=== PATIENT | male | born 1950 | race Caucasian/White ===

== ENCOUNTER 2020-03-17 02:03 | Emergency (ER) | payer SELFPAY ==
[2020-03-17] MEDS ORDERED: Acetaminophen 325 MG Tab PO ONE (02:42)
--- NOTE | 2020-03-17 02:53 | EDM.PDOC ---
<Jammie Ferguson - Last Filed: 03/17/20 06:28> ED HPI GENERAL MEDICAL PROBLEM - General Chief Complaint: Respiratory Problem Stated Complaint: CHILLS DOESNT FEEL WELL Time Seen by Provider: 03/17/20 02:15 Source of Information: Reports: Patient History Limitations: Reports: No Limitations - History of Present Illness INITIAL COMMENTS - FREE TEXT/NARRATIVE: ED with c/o chills body aches, cough and SOB. No nausea or vomiting No loss of taste or smell. No known COVID exposure. Cough nonproductive. Smoker usual 1PPD down to 1/2PPD past 2 days. HX COPD, intermittent use of Albuterol, Bladder cancer [facility] this [facility] Advil last at 5pm, usually one dose per days. 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 ED EXAM, GENERAL - Physical Exam Exam: See Below Exam Limited By: No Limitations General Appearance: Alert, Anxious, Mild Distress Eye Exam: Bilateral Eye: EOMI, PERRL Ears: Normal External Exam Nose: Normal Inspection Throat/Mouth: Normal Inspection Head: Atraumatic, Normocephalic Neck: Normal Inspection Respiratory/Chest: No Respiratory Distress, Lungs Clear, Other (dry bronchial cough) Cardiovascular: Normal Peripheral Pulses, Regular Rate, Rhythm GI/Abdominal: Normal Bowel Sounds, Soft Back Exam: Normal Inspection, Full Range of Motion Extremities: Normal Inspection, Normal Range of Motion Neurological: Alert, Oriented, Normal Cognition Psychiatric: Normal Affect, Normal Mood Skin Exam: Warm, Dry, Intact, Normal Color Departure - Departure Disposition: Home, Self-Care 01 Condition: Good Clinical Impression: Myalgia, COVID-19, History of COPD, Hx of bladder cancer - Discharge Information *PRESCRIPTION DRUG MONITORING PROGRAM REVIEWED*: No *COPY OF PRESCRIPTION DRUG MONITORING REPORT IN PATIENT DANETTE: No Instructions: COVID-19 Frequently Asked Questions, Prevent the Spread of COVID- 19 if You Are Sick - [facility] Forms: ED Department Discharge Additional Instructions: increase fluids decrease smoking over counter cold medications to manage congestion /cough tylenol 650mg every 4 hours as needed for discomfort and fever humidifier quarantine urgent follow up if severe difficulty breathing Sepsis Event Note (ED) - Evaluation Sepsis Screening Result: Possible Sepsis Risk <Lei Smith - Last Filed: 03/17/20 07:14> Course - Vital Signs Last Recorded V/S: Last Vital Signs Temp 35.9 C L 03/17/20 07:09 Pulse 76 03/17/20 07:09 Resp 18 03/17/20 07:09 BP 130/80 03/17/20 07:09 Pulse Ox 98 03/17/20 07:09 - Orders/Labs/Meds Orders: Active Orders 24 hr Category Date Time Status CULTURE BLOOD [BC] Stat Lab 03/17/20 02:33 Received LORazepam [Ativan] Med 03/17/20 04:55 Active 1 mg IVPUSH ONETIME PRN Isolation [COMM] Routine Oth 03/17/20 02:54 Active Medication Orders Lorazepam (Ativan) 1 mg IVPUSH ONETIME PRN PRN Reason: Agitation Last Admin: 03/17/20 05:19 Dose: 1 mg Documented by: JOHANN Labs: Laboratory Tests 03/17/20 03/17/20 03/17/20 Range/Units 02:33 02:33 02:33 WBC 7.7 (5.0-10.0) 10^3/uL RBC 5.42 (4.6-6.2) 10^6/uL Hgb 16.4 (14.0-18.0) g/dL Hct 47.2 (40.0-54.0) % MCV 87.1 (80-100) fL MCH 30.3 (27.0-34.0) pg MCHC 34.7 (33.0-35.0) g/dL Plt Count 212 (150-450) 10^3/uL Neut % (Auto) 59.1 (42.2-75.2) % Lymph % (Auto) 26.4 (20.5-50.1) % [place] % (Auto) 13.5 H (2-8) % Eos % (Auto) 0.9 L (1.0-3.0) % Baso % (Auto) 0.1 (0.0-1.0) % PT 9.9 (9.0-12.0) SEC INR 1.0 (0.9-1.2) D-Dimer, Quantitative (0-400) ng/mL Sodium 134 L (136-145) mmol/L Potassium 4.6 (3.5-5.1) mmol/L Chloride 99 (98-107) mmol/L Carbon Dioxide 26 (21-32) mmol/L Anion Gap 13.6 H (7-13) mEq/L BUN 16 (7-18) mg/dL Creatinine 1.31 H (0.70-1.30) mg/dL Est Cr Clr Drug Dosing 56.50 mL/min Estimated GFR (MDRD) 55 BUN/Creatinine Ratio 12.2 (No establ ref range) Glucose 97 (74-99) mg/dL Lactic Acid (0.4-2.0) mmol/L Calcium 8.3 L (8.5-10.1) mg/dL Total Bilirubin 0.5 (0.2-1.0) mg/dL AST 25 (15-37) U/L ALT 27 (16-63) U/L Alkaline Phosphatase 84 (46-116) U/L Total Protein 7.4 (6.4-8.2) g/dL Albumin 3.3 L (3.4-5.0) g/dL Globulin 4.1 Albumin/Globulin Ratio 0.80 Amylase 55 (25-115) U/L Lipase 117 (73-393) U/L Urine Color (YELLOW) Urine Appearance (CLEAR) Urine pH (5.0-9.0) Ur Specific [place] (1.005-1.030) Urine Protein (NEGATIVE) Urine Glucose (UA) (NEGATIVE) Urine Ketones (NEGATIVE) Urine Occult Blood (NEGATIVE) Urine Nitrite (NEGATIVE) Urine Bilirubin (NEGATIVE) Urine Urobilinogen (0.2-1.0) mg/dL Ur Leukocyte Esterase (NEGATIVE) Urine Opiates Screen (NEGATIVE) Ur Oxycodone Screen (NEGATIVE) Urine Methadone Screen (NEGATIVE) Ur Barbiturates Screen (NEGATIVE) U Tricyclic Antidepress (NEGATIVE) Ur Phencyclidine Scrn (NEGATIVE) Ur Amphetamine Screen (NEGATIVE) U Methamphetamines Scrn (NEGATIVE) Urine MDMA Screen (NEGATIVE) U Benzodiazepines Scrn (NEGATIVE) Urine Cocaine Screen (NEGATIVE) U Marijuana (THC) Screen (NEGATIVE) Ethyl Alcohol (0) mg/dL SARS CoV-2 RNA Rapid MERRICK (NEGATIVE) 03/17/20 03/17/20 03/17/20 Range/Units 02:33 02:33 02:33 WBC (5.0-10.0) 10^3/uL RBC (4.6-6.2) 10^6/uL Hgb (14.0-18.0) g/dL Hct (40.0-54.0) % MCV (80-100) fL MCH (27.0-34.0) pg MCHC (33.0-35.0) g/dL Plt Count (150-450) 10^3/uL Neut % (Auto) (42.2-75.2) % Lymph % (Auto) (20.5-50.1) % [place] % (Auto) (2-8) % Eos % (Auto) (1.0-3.0) % Baso % (Auto) (0.0-1.0) % PT (9.0-12.0) SEC INR (0.9-1.2) D-Dimer, Quantitative 430 H (0-400) ng/mL Sodium (136-145) mmol/L Potassium (3.5-5.1) mmol/L Chloride (98-107) mmol/L Carbon Dioxide (21-32) mmol/L Anion Gap (7-13) mEq/L BUN (7-18) mg/dL Creatinine (0.70-1.30) mg/dL Est Cr Clr Drug Dosing mL/min Estimated GFR (MDRD) BUN/Creatinine Ratio (No establ ref range) Glucose (74-99) mg/dL Lactic Acid 1.8 (0.4-2.0) mmol/L Calcium (8.5-10.1) mg/dL Total Bilirubin (0.2-1.0) mg/dL AST (15-37) U/L ALT (16-63) U/L Alkaline Phosphatase (46-116) U/L Total Protein (6.4-8.2) g/dL Albumin (3.4-5.0) g/dL Globulin Albumin/Globulin Ratio Amylase (25-115) U/L Lipase (73-393) U/L Urine Color (YELLOW) Urine Appearance (CLEAR) Urine pH (5.0-9.0) Ur Specific [place] (1.005-1.030) Urine Protein (NEGATIVE) Urine Glucose (UA) (NEGATIVE) Urine Ketones (NEGATIVE) Urine Occult Blood (NEGATIVE) Urine Nitrite (NEGATIVE) Urine Bilirubin (NEGATIVE) Urine Urobilinogen (0.2-1.0) mg/dL Ur Leukocyte Esterase (NEGATIVE) Urine Opiates Screen (NEGATIVE) Ur Oxycodone Screen (NEGATIVE) Urine Methadone Screen (NEGATIVE) Ur Barbiturates Screen (NEGATIVE) U Tricyclic Antidepress (NEGATIVE) Ur Phencyclidine Scrn (NEGATIVE) Ur Amphetamine Screen (NEGATIVE) U Methamphetamines Scrn (NEGATIVE) Urine MDMA Screen (NEGATIVE) U Benzodiazepines Scrn (NEGATIVE) Urine Cocaine Screen (NEGATIVE) U Marijuana (THC) Screen (NEGATIVE) Ethyl Alcohol < 3 (0) mg/dL SARS CoV-2 RNA Rapid MERRICK (NEGATIVE) 03/17/20 03/17/20 03/17/20 Range/Units 02:34 03:30 03:30 WBC (5.0-10.0) 10^3/uL RBC (4.6-6.2) 10^6/uL Hgb (14.0-18.0) g/dL Hct (40.0-54.0) % MCV (80-100) fL MCH (27.0-34.0) pg MCHC (33.0-35.0) g/dL Plt Count (150-450) 10^3/uL Neut % (Auto) (42.2-75.2) % Lymph % (Auto) (20.5-50.1) % [place] % (Auto) (2-8) % Eos % (Auto) (1.0-3.0) % Baso % (Auto) (0.0-1.0) % PT (9.0-12.0) SEC INR (0.9-1.2) D-Dimer, Quantitative (0-400) ng/mL Sodium (136-145) mmol/L Potassium (3.5-5.1) mmol/L Chloride (98-107) mmol/L Carbon Dioxide (21-32) mmol/L Anion Gap (7-13) mEq/L BUN (7-18) mg/dL Creatinine (0.70-1.30) mg/dL Est Cr Clr Drug Dosing mL/min Estimated GFR (MDRD) BUN/Creatinine Ratio (No establ ref range) Glucose (74-99) mg/dL Lactic Acid (0.4-2.0) mmol/L Calcium (8.5-10.1) mg/dL Total Bilirubin (0.2-1.0) mg/dL AST (15-37) U/L ALT (16-63) U/L Alkaline Phosphatase (46-116) U/L Total Protein (6.4-8.2) g/dL Albumin (3.4-5.0) g/dL Globulin Albumin/Globulin Ratio Amylase (25-115) U/L Lipase (73-393) U/L Urine Color Yellow (YELLOW) Urine Appearance Clear (CLEAR) Urine pH 7.5 (5.0-9.0) Ur Specific [place] 1.020 (1.005-1.030) Urine Protein Negative (NEGATIVE) Urine Glucose (UA) Negative (NEGATIVE) Urine Ketones Negative (NEGATIVE) Urine Occult Blood Negative (NEGATIVE) Urine Nitrite Negative (NEGATIVE) Urine Bilirubin Negative (NEGATIVE) Urine Urobilinogen 0.2 (0.2-1.0) mg/dL Ur Leukocyte Esterase Negative (NEGATIVE) Urine Opiates Screen Negative (NEGATIVE) Ur Oxycodone Screen Negative (NEGATIVE) Urine Methadone Screen Negative (NEGATIVE) Ur Barbiturates Screen Negative (NEGATIVE) U Tricyclic Antidepress Negative (NEGATIVE) Ur Phencyclidine Scrn Negative (NEGATIVE) Ur Amphetamine Screen Negative (NEGATIVE) U Methamphetamines Scrn Positive H (NEGATIVE) Urine MDMA Screen Negative (NEGATIVE) U Benzodiazepines Scrn Negative (NEGATIVE) Urine Cocaine Screen Negative (NEGATIVE) U Marijuana (THC) Screen Positive H (NEGATIVE) Ethyl Alcohol (0) mg/dL SARS CoV-2 RNA Rapid MERRICK Positive H (NEGATIVE) Meds: Medications Generic Name Dose Route Start Last Admin Trade Name Freq PRN Reason Stop Dose Admin Lorazepam 1 mg 03/17/20 04:55 03/17/20 05:19 Ativan IVPUSH 1 mg ONETIME PRN Administration Agitation Discontinued Medications Generic Name Dose Route Start Last Admin Trade Name Freq PRN Reason Stop Dose Admin Acetaminophen 650 mg 03/17/20 02:42 03/17/20 02:52 Tylenol PO 03/17/20 02:43 650 mg NOW ONE Administration Fentanyl 50 mcg 03/17/20 04:44 03/17/20 04:47 Sublimaze IVPUSH 03/17/20 04:45 50 mcg ONETIME ONE Administration Fentanyl Confirm 03/17/20 04:44 03/17/20 04:50 Sublimaze Administered 03/17/20 04:45 Not Given Dose 100 mcg .ROUTE .STK-MED ONE Methylprednisolone Sodium Succinate 40 mg 03/17/20 04:43 03/17/20 04:51 Solu-Medrol IVPUSH 03/17/20 04:44 40 mg ONETIME ONE Administration Methylprednisolone Sodium Succinate Confirm 03/17/20 04:44 03/17/20 04:51 Solu-Medrol Administered 03/17/20 04:45 Not Given Dose 125 mg .ROUTE .STK-MED ONE Promethazine HCl 25 mg 03/17/20 03:13 03/17/20 03:20 Phenergan IM 03/17/20 03:14 25 mg ONETIME ONE Administration Departure - Departure Time of Disposition: 07:14 Sepsis Event Note (ED) - Focused Exam Vital Signs: Vital Signs Temp Pulse Resp BP Pulse Ox 03/17/20 07:09 35.9 C L 76 18 130/80 98 03/17/20 05:59 36.8 C 72 21 H 145/66 H 96 03/17/20 04:34 37.3 C 75 24 H 150/74 H 96 03/17/20 03:25 37.2 C 78 26 H 152/37 H 96 03/17/20 02:10 37.3 C 93 28 H 157/89 H 93 L
[2020-03-17 03:03] LABS: ANION GAP 13.6 mEq/L (7-13)
[2020-03-17] MEDS ORDERED: Promethazine 25 MG/ML SDV IM ONE (03:13)
--- NOTE | 2020-03-17 04:06 | CR ---
PROCEDURE INFORMATION: Exam: XR Chest, 1 View Exam date and time: 03/17/2020 3:46 AM Age: 69 years old Clinical indication: Cough; Additional info: Chill cough covid + TECHNIQUE: Imaging protocol: XR of the chest Views: 1 view. COMPARISON: No relevant prior studies available. FINDINGS: Lungs: Faint parenchymal opacities in both lateral costophrenic angles right greater than left likely subsegmental atelectasis/scar. Early superimpose pneumonia in the right lateral costophrenic angle is not excluded. Pleural space: Unremarkable. No pleural effusion. No pneumothorax. Heart/Mediastinum: Unremarkable. No cardiomegaly. Bones/joints: Unremarkable. Soft tissues: Multiple overlapping chest leads. IMPRESSION: Fine linear subsegmental atelectasis/scar bilateral lateral costophrenic angles. Associated haziness on the right may be due to superimposed pneumonitis.
[2020-03-17] MEDS ORDERED: methylPREDNISolone Sodium Succinate 40 MG/1 ML SDV IVPUSH ONE (04:43)
[2020-03-17] MEDS ORDERED: fentaNYL 100 MCG/2 ML SDV IVPUSH ONE (04:44)
[2020-03-17] MEDS ORDERED: fentaNYL 100 MCG/2 ML SDV ONE (04:44)
[2020-03-17] MEDS ORDERED: methylPREDNISolone Sodium Succinate 125 MG/2 ML SDV ONE (04:44)
[2020-03-17] MEDS ORDERED: LORazepam 2 MG/ML SDV IVPUSH PRN (04:55)
== END 2020-03-17 07:12 | disposition home or self-care (01) ==
LOC: DL.ED 02:03
DX: U07.1 COVID-19 (principal); J44.9 Chronic obstructive pulmonary disease, unspecified; F17.210 Nicotine dependence, cigarettes, uncomplicated; Z85.51 Personal history of malignant neoplasm of bladder
CPT/HCPCS: 36415; 71045; 80053; 80305; 80307; 81003; 82150; 83605; 83690; 85025; 85379; 85610; 87040; 87635; 87804; 93005; 96372; 96374; 96375; 99285; A9270; J2060; J2550; J2920; J3010; U0002

== ENCOUNTER 2020-11-22 13:32 | Emergency (ER) | payer SELFPAY ==
--- NOTE | 2020-11-22 14:10 | EDM.PDOC ---
ED HPI GENERAL MEDICAL PROBLEM - General Stated Complaint: SHORTNESS OF BREATH Time Seen by Provider: 11/22/20 14:08 Source of Information: Reports: Patient, RN, RN Notes Reviewed History Limitations: Reports: No Limitations - History of Present Illness INITIAL COMMENTS - FREE TEXT/NARRATIVE: Sunny is a 70 y/o male with a history of COPD who presents to the ED via personal vehicle with complaints of shortness of breath and chest pain. The patient reports his symptoms began in the night four days ago; he woke from sleep feeling SOB. Additionally, he notes general malaise, orthopnea, productive cough, and upper back pain. The patient denies fever, shaking chills, sinus pressure/congestion, sore throat, nausea, vomiting, or abdominal pain. He notes his symptoms have increased in severity over this time despite utilizing his albuterol inhaler or decongestants. The patient attests to smoking one pack of cigarettes per day; he notes his usage has reduced since his symptoms began. Additionally, he reports cannabis use within the past 48 hours. He denies alcohol use. Right Chest Pain Score (Numeric/FACES): 8 - Related Data Allergies Allergy/AdvReac Type Severity Reaction Status Date / Time No Known Allergies Allergy Verified 11/22/20 14:05 Home Meds: Home Meds Albuterol Sulfate [Albuterol Sulfate Hfa] 2 sprays INH ASDIRECTED PRN 03/17/20 [History] guaiFENesin [Guaifenesin] 200 mg PO TID 11/22/20 [History] traMADol HCl [Tramadol HCl] 50 mg PO DAILY 11/22/20 [History] Past Medical History HEENT History: Reports: None Cardiovascular History: Reports: None Respiratory History: Reports: COPD Gastrointestinal History: Reports: GERD Genitourinary History: Reports: None Musculoskeletal History: Reports: None Neurological History: Reports: None, Head Trauma Psychiatric History: Reports: Anxiety Endocrine/Metabolic History: Reports: None Hematologic History: Reports: None Immunologic History: Reports: None Oncologic (Cancer) History: Reports: Bladder Dermatologic History: Reports: None - Infectious Disease History Infectious Disease History: Reports: None - Past Surgical History Head Surgeries/Procedures: Reports: None Oncologic Surgical History: Reports: Other (See Below) Other Oncologic Surgeries/Procedures: Did a scraping. Social & Family History - Family History Family Medical History: No Pertinent Family History - Tobacco Use Tobacco Use Status *Q: Heavy Tobacco User Years of Tobacco use: 40 Packs/Tins Daily: 1 - Caffeine Use Caffeine Use: Reports: Coffee - Recreational Drug Use Recreational Drug Use: Yes Recreational Drug Type: Reports: Marijuana/Hashish Other Recreational Drug Type: medicates for arthritis with THC ED ROS GENERAL - Review of Systems Review Of Systems: Comprehensive ROS is negative, except as noted in HPI. ED EXAM, GENERAL - Physical Exam Exam: See Below Exam Limited By: No Limitations General Appearance: Alert, No Apparent Distress Eye Exam: Bilateral Eye: EOMI, Normal Inspection, PERRL (3mm) Ears: Normal External Exam, Normal Canal, Hearing Grossly Normal, Normal TMs Ear Exam: Bilateral Ear: Auricle Normal, Canal Normal, TM normal Throat/Mouth: Normal Inspection, Normal Oropharynx, Normal Voice, No Airway Compromise Head: Atraumatic, Normocephalic Neck: Normal Inspection, Supple, Non-Tender, Full Range of Motion. No: Lymphadenopathy (L), Lymphadenopathy (R) Respiratory/Chest: Decreased Breath Sounds, Rales (Bilateral), Wheezing (Expiratory to left base), Accessory Muscle Use. No: Crackles, Rhonchi, Stridor Cardiovascular: Regular Rate, Rhythm, No Edema, No Gallop, No JVD, No Murmur, No Rub GI/Abdominal: Normal Bowel Sounds, Soft, Non-Tender, No Distention, No Abnormal Bruit, No Mass, Pelvis Stable Back Exam: Normal Inspection, Full Range of Motion Extremities: Normal Inspection, Normal Range of Motion, Non-Tender, No Pedal Edema, Normal Capillary Refill Neurological: Alert, Oriented, CN II-XII Intact, Normal Cognition, Normal Gait, No Motor/Sensory Deficits Psychiatric: Normal Affect, Normal Mood Skin Exam: Warm, Dry, Intact, Normal Color, No Rash. No: Erythema, Jaundice, Mottled, Pallor #1 Interpretation EKG Date: 11/22/20 Time: 14:01 Rhythm: NSR Rate (Beats/Min): 65 [place]: Normal P-Wave: Present QRS: Normal ST-T: Normal QT: Normal UT/PQ Interval: 0.187 Comparison: No Change EKG Interpretation Comments: NSR; No evidence of acute myocardial ischemia #2 Interpretation EKG Date: 11/22/20 Time: 15:54 Rhythm: NSR Rate (Beats/Min): 65 [place]: Normal P-Wave: Present QRS: Normal ST-T: Normal QT: Normal UT/PQ Interval: 0.179 Comparison: No Change (No baseline wander in leads) EKG Interpretation Comments: NSR; No evidence of acute myocardial ischemia Course - Vital Signs Last Recorded V/S: Last Vital Signs Temp 99.4 F 11/22/20 13:54 Pulse 66 11/22/20 13:54 Resp 28 H 11/22/20 13:54 BP 157/79 H 11/22/20 15:41 Pulse Ox 90 L 11/22/20 13:54 - Orders/Labs/Meds Orders: Active Orders 24 hr Category Date Time Status DRUG SCREEN URINE BIORAD [URCHEM] Urgent Lab 11/22/20 13:43 Ordered UA RFX SANDY AND CULT IF INDIC [URIN] Stat Lab 11/22/20 13:43 Ordered Labs: Laboratory Tests 11/22/20 11/22/20 11/22/20 Range/Units 13:50 13:59 13:59 WBC 10.7 H (5.0-10.0) 10^3/uL RBC 5.25 (4.6-6.2) 10^6/uL Hgb 15.9 (14.0-18.0) g/dL Hct 46.9 (40.0-54.0) % MCV 89.3 (80-100) fL MCH 30.3 (27.0-34.0) pg MCHC 33.9 (33.0-35.0) g/dL Plt Count 317 D (150-450) 10^3/uL Neut % (Auto) 68.3 (42.2-75.2) % Lymph % (Auto) 21.0 (20.5-50.1) % [place] % (Auto) 8.5 H (2-8) % Eos % (Auto) 1.7 (1.0-3.0) % Baso % (Auto) 0.5 (0.0-1.0) % D-Dimer, Quantitative 437 H (0-400) ng/mL Sodium (136-145) mmol/L Potassium (3.5-5.1) mmol/L Chloride (98-107) mmol/L Carbon Dioxide (21-32) mmol/L Anion Gap (7-13) mEq/L BUN (7-18) mg/dL Creatinine (0.70-1.30) mg/dL Est Cr Clr Drug Dosing mL/min Estimated GFR (MDRD) BUN/Creatinine Ratio (No establ ref range) Glucose (70-99) mg/dL Lactic Acid (0.4-2.0) mmol/L Calcium (8.5-10.1) mg/dL Total Bilirubin (0.2-1.0) mg/dL AST (15-37) U/L ALT (16-63) U/L Alkaline Phosphatase (46-116) U/L Troponin I High Sens (<=76) pg/mL C-Reactive Protein (0.0-0.9) mg/dL B-Natriuretic Peptide (0-100) pg/ml Total Protein (6.4-8.2) g/dL Albumin (3.4-5.0) g/dL Globulin Albumin/Globulin Ratio Influenza Type A RNA Negative (NEGATIVE) Influenza Type B RNA Negative (NEGATIVE) SARS-CoV-2 RNA (MERRICK) Negative (NEGATIVE) 11/22/20 11/22/20 Range/Units 13:59 13:59 WBC (5.0-10.0) 10^3/uL RBC (4.6-6.2) 10^6/uL Hgb (14.0-18.0) g/dL Hct (40.0-54.0) % MCV (80-100) fL MCH (27.0-34.0) pg MCHC (33.0-35.0) g/dL Plt Count (150-450) 10^3/uL Neut % (Auto) (42.2-75.2) % Lymph % (Auto) (20.5-50.1) % [place] % (Auto) (2-8) % Eos % (Auto) (1.0-3.0) % Baso % (Auto) (0.0-1.0) % D-Dimer, Quantitative (0-400) ng/mL Sodium 140 (136-145) mmol/L Potassium 4.3 (3.5-5.1) mmol/L Chloride 105 (98-107) mmol/L Carbon Dioxide 26 (21-32) mmol/L Anion Gap 13.3 H (7-13) mEq/L BUN 17 (7-18) mg/dL Creatinine 1.31 H (0.70-1.30) mg/dL Est Cr Clr Drug Dosing 53.97 mL/min Estimated GFR (MDRD) 54 BUN/Creatinine Ratio 13.0 (No establ ref range) Glucose 103 H (70-99) mg/dL Lactic Acid 0.6 (0.4-2.0) mmol/L Calcium 8.0 L (8.5-10.1) mg/dL Total Bilirubin 0.4 (0.2-1.0) mg/dL AST 16 (15-37) U/L ALT 30 (16-63) U/L Alkaline Phosphatase 73 (46-116) U/L Troponin I High Sens 154 H* (<=76) pg/mL C-Reactive Protein 2.4 H (0.0-0.9) mg/dL B-Natriuretic Peptide 29 (0-100) pg/ml Total Protein 6.7 (6.4-8.2) g/dL Albumin 3.1 L (3.4-5.0) g/dL Globulin 3.6 Albumin/Globulin Ratio 0.86 Influenza Type A RNA (NEGATIVE) Influenza Type B RNA (NEGATIVE) SARS-CoV-2 RNA (MERRICK) (NEGATIVE) Meds: Medications Discontinued Medications Generic Name Dose Route Start Last Admin Trade Name Freq PRN Reason Stop Dose Admin Albuterol/Ipratropium 3 ml 11/22/20 14:36 11/22/20 14:53 Albuterol/Ipratropium 3.0-0.5 Mg/3 Ml Neb Soln NEB 11/22/20 14:37 3 ml ONETIME ONE Administration Aspirin 324 mg 11/22/20 15:33 11/22/20 15:41 Aspirin 81 Mg Tab.Chew PO 11/22/20 15:34 324 mg ONETIME ONE Administration Heparin Sodium (Porcine) 4,000 units 11/22/20 16:10 11/22/20 16:20 Heparin Sodium 5,000 Units/Ml Vial IVPUSH 11/22/20 16:11 4,000 units .BOLUS ONE Administration Sodium Chloride 1,000 mls @ 999 mls/hr 11/22/20 14:42 11/22/20 15:14 Normal Saline IV 11/22/20 15:42 999 mls/hr .BOLUS ONE Administration Heparin Sodium/Sodium Chloride 25,000 units in 500 mls @ 19.922 mls/hr 11/22/20 16:15 11/22/20 16:20 Heparin 25,000 Units In 1/2 Ns 500 Ml IV 12 units/kg/hr TITRATE JEANNE 19.922 mls/hr Administration Protocol 12 UNITS/KG/HR Methylprednisolone Sodium Succinate 125 mg 11/22/20 14:36 11/22/20 15:14 Methylprednisolone Sodium Succinate 125 Mg/2 Ml Sdv IVPUSH 11/22/20 14:37 125 mg ONETIME ONE Administration Nitroglycerin 0.4 mg 11/22/20 15:33 11/22/20 15:41 Nitroglycerin 0.4 Mg Tab.Sl SL 11/22/20 15:34 0.4 mg ONETIME ONE Administration - Re-Assessments/Exams Free Text/Narrative Re-Assessment/Exam: 11/22/20 NS bolus initiated. DuoNeb and Solu-Medrol administered. COVID/Influenza negative. Troponin elevated at 158. ASA and Nitro administered. Case discussed with Dr. Renteria, hospitalist at [facility] in [place], who kindly agreed to accept patient for direct admission for NSTEMI. Discussed findings of xray and radiologist suggestion of CT. Dr. Renteria requesting heparin gtt for NSTEMI protocol. Findings of examination, lab work, imaging, and discussion with Dr. Renteria reviewed with patient. Patient verbalized understanding and agreement with transfer via [place] to [facility]. Departure - Departure Time of Disposition: 16:19 Disposition: DC/Tfer to Acute Hospital 02 Clinical Impression: NSTEMI (non-ST elevated myocardial infarction), Hypoxia, History of COVID-19, Mass of hilum, Pleural effusion, right COPD (chronic obstructive pulmonary disease) Qualifiers: COPD type: unspecified COPD Qualified Code(s): J44.9 - Chronic obstructive pulmonary disease, unspecified - Discharge Information Referrals: PCP,None [Ordering Only Provider] - Forms: [facility] Sepsis Event Note (ED) - Evaluation Sepsis Screening Result: No Definite Risk - Focused Exam Vital Signs: Vital Signs Temp Pulse Resp BP BP Pulse Ox 11/22/20 15:41 157/79 H 11/22/20 13:54 99.4 F 66 28 H 167/70 H 90 L - My Orders Last 24 Hours: My Active Orders 11/22/20 13:43 DRUG SCREEN URINE BIORAD [URCHEM] Urgent UA RFX SANDY AND CULT IF INDIC [URIN] Stat - Assessment/Plan Last 24 Hours: My Active Orders 11/22/20 13:43 DRUG SCREEN URINE BIORAD [URCHEM] Urgent UA RFX SANDY AND CULT IF INDIC [URIN] Stat
[2020-11-22 14:35] LABS: ANION GAP 13.3 mEq/L (7-13)
[2020-11-22] MEDS ORDERED: methylPREDNISolone Sodium Succinate 125 MG/2 ML SDV IVPUSH ONE (14:36)
[2020-11-22] MEDS ORDERED: Albuterol/Ipratropium 3.0-0.5 MG/3 ML Neb Soln NEB ONE (14:36)
[2020-11-22] MEDS ORDERED: Sodium Chloride 0.9% 1,000 ML IV ONE (14:42)
[2020-11-22 14:49] LABS: CORONAVIRUS COVID-19 NAA NEGATIVE (NEGATIVE)
--- NOTE | 2020-11-22 15:26 | CR ---
EXAMINATION: Chest 2V SEX: Male AGE: 70 years CLINICAL HISTORY: A 70-year-old male with COPD and shortness of breath (hypoxia). Comparison 17 March 2020. Interpretation: Abnormal. *Asymmetric large dependent new subpulmonic pleural effusion on the right and suggestion of ipsilateral, perihilar stellate masslike density. Recommend considering CT scan with IV contrast for further hilar/mediastinal evaluation. Smoker? Note: Large right pleural effusion new since March, CXR. No sign of other lung mass. Normal cardiac silhouette and pulmonary vascularity. No cephalization, alveolar edema or left pleural effusion No pneumothorax or pneumomediastinum. No shift of the midline trachea. No alveolar consolidation (infiltrate) or peripheral "groundglass" interstitial lung densities.
[2020-11-22] MEDS ORDERED: Nitroglycerin 0.4 MG Tab.SL SL ONE (15:33)
[2020-11-22] MEDS ORDERED: Aspirin 81 MG Tab.Chew PO ONE (15:33)
[2020-11-22] MEDS ORDERED: Heparin Sodium 5,000 Units/ML Vial IVPUSH ONE (16:10)
[2020-11-22] MEDS ORDERED: Heparin Sodium/0.45% NaCl 25,000 UNITS/500 ML BAG IV SCH (16:15)
== END 2020-11-22 16:40 ==
LOC: DL.ED 13:32
DX: I21.4 Non-ST elevation (NSTEMI) myocardial infarction (principal); J44.9 Chronic obstructive pulmonary disease, unspecified; J90 Pleural effusion, not elsewhere classified; Z20.822 Contact with and (suspected) exposure to COVID-19; Z72.0 Tobacco use
CPT/HCPCS: 0240U; 36415; 71046; 80053; 83605; 83880; 84484; 85025; 85379; 86140; 93005; 93010; 94640; 96365; 96375; 99284; 99285; A9270; J1644; J2930; J7030; J7620-GY

== ENCOUNTER 2021-05-03 12:54 | Emergency (ER) | payer SELFPAY ==
[2021-05-03] MEDS ORDERED: Sodium Chloride 0.9% 10 ML Syringe FLUSH PRN (13:12)
[2021-05-03] MEDS ORDERED: Ondansetron 4 MG/2 ML SDV IVPUSH ONE (13:14)
--- NOTE | 2021-05-03 13:22 | EDM.PDOC ---
ED HPI GENERAL MEDICAL PROBLEM - General Chief Complaint: Cardiovascular Problem Stated Complaint: [facility] HE[facility] ISSUES / RAPID PULSE Time Seen by Provider: 05/03/21 13:17 Source of Information: Reports: Patient History Limitations: Reports: No Limitations - History of Present Illness INITIAL COMMENTS - FREE TEXT/NARRATIVE: 70 y/o M [facility]/o tachycardia and pain between his shoulder blades taht started last night. Experiences sob when ambulating and nausea. Has stage 4 lung cancer diagnosed in November this year in the R lung. Has a plueral drain posterior R chest to drain pleural effusion. Last chemo on Saturday. Denies fever, chills, cough, cp, abd pn,extremity pain. No hx of blood clots, trauma, drugs, etoh. - Related Data Allergies Allergy/AdvReac Type Severity Reaction Status Date / Time No Known Allergies Allergy Verified 05/03/21 13:12 Home Meds: Home Meds Albuterol Sulfate [Albuterol Sulfate Hfa] 2 sprays INH ASDIRECTED PRN 03/17/20 [History] guaiFENesin [Guaifenesin] 200 mg PO TID 11/22/20 [History] traMADol HCl [Tramadol HCl] 50 mg PO DAILY 11/22/20 [History] Past Medical History HEENT History: Reports: None Cardiovascular History: Reports: None Respiratory History: Reports: COPD Gastrointestinal History: Reports: GERD Genitourinary History: Reports: None Musculoskeletal History: Reports: None Neurological History: Reports: None, Head Trauma Psychiatric History: Reports: Anxiety Endocrine/Metabolic History: Reports: None Hematologic History: Reports: None Immunologic History: Reports: None Oncologic (Cancer) History: Reports: Bladder Dermatologic History: Reports: None - Infectious Disease History Infectious Disease History: Reports: None - Past Surgical History Head Surgeries/Procedures: Reports: None Oncologic Surgical History: Reports: Other (See Below) Other Oncologic Surgeries/Procedures: Did a scraping. Social & Family History - Family History Family Medical History: No Pertinent Family History - Caffeine Use Caffeine Use: Reports: Coffee ED ROS GENERAL - Review of Systems Review Of Systems: Comprehensive ROS is negative, except as noted in HPI. ED EXAM, GENERAL - Physical Exam Exam: See Below Exam Limited By: No Limitations General Appearance: Alert, Mild Distress Eye Exam: Bilateral Eye: PERRL Nose: Normal Inspection, Normal Mucosa, No Blood Throat/Mouth: Normal Lips, Normal Teeth, Other (tongue dry and furrowed. ) Head: Atraumatic, Normocephalic Neck: Normal Inspection, Supple, Non-Tender, Full Range of Motion Respiratory/Chest: No Respiratory Distress, Lungs Clear Cardiovascular: No JVD, Tachycardia Peripheral Pulses: 2+: Radial (L), Radial (R) GI/Abdominal: Soft, Non-Tender (Male) Exam: Deferred Rectal (Males) Exam: Deferred Back Exam: Normal Inspection, Full Range of Motion Extremities: Normal Inspection, Normal Range of Motion, Non-Tender, Normal Capillary Refill, No Pedal Edema Neurological: Alert, Oriented, CN II-XII Intact, Normal Cognition, Normal Gait, Normal Reflexes, No Motor/Sensory Deficits Psychiatric: Normal Affect, Normal Mood Skin Exam: Warm, Dry, Intact #1 Interpretation EKG Date: 05/03/21 Rhythm: Other (svt) [place]: Normal P-Wave: Absent QRS: Normal ST-T: Normal QT: Normal #2 Interpretation EKG Date: 05/03/21 Time: 13:54 Rhythm: A-Fib [place]: Normal QRS: Normal ST-T: Normal QT: Normal Course - Vital Signs Last Recorded V/S: Last Vital Signs Temp 97.5 F 05/03/21 13:13 Pulse 158 H 05/03/21 13:13 Resp 26 H 05/03/21 13:13 BP 100/68 05/03/21 13:13 Pulse Ox 96 05/03/21 13:13 - Orders/Labs/Meds Orders: Active Orders 24 hr Category Date Time Status Peripheral IV Care [RC] . DIRECTED Care 05/03/21 13:13 Active CULTURE BLOOD [BC] Stat Lab 05/03/21 13:08 Received CULTURE BLOOD [BC] Stat Lab 05/03/21 13:48 Received Diltiazem 125 mg Med 05/03/21 15:30 Active Sodium Chloride 0.9% [Normal Saline] 100 ml IV TITRATE Heparin Sodium/0.45% NaCl [Heparin 25,000 Units in 1/2 Med 05/03/21 16:00 Active NS 500 ML] 25,000 units in 500 ml IV TITRATE Sodium Chloride 0.9% [Saline Flush] Med 05/03/21 13:12 Active 10 ml FLUSH ASDIRECTED PRN Blood Culture x2 Reflex Set [OM.PC] Stat Oth 05/03/21 13:13 Ordered Peripheral IV Insertion Adult [OM.PC] Routine Oth 05/03/21 13:12 Ordered Medication Orders Diltiazem HCl 125 mg/ Sodium (Chloride) 125 mls @ 5 mls/hr IV TITRATE JEANEN; Protocol Last Titration: 05/03/21 16:42 Dose: 7.5 mg/hr, 7.5 mls/hr Documented by: [id number] Titration: 05/03/21 16:38 Dose: 5 mg/hr, 5 mls/hr Documented by: [id number] Titration: 05/03/21 16:19 Dose: 10 mg/hr, 10 mls/hr Documented by: [id number] Admin: 05/03/21 15:49 Dose: 5 mg/hr, 5 mls/hr Documented by: [id number] Heparin Sodium/Sodium Chloride (Heparin 25,000 Units In 1/2 Ns 500 Ml) 25,000 units in 500 mls @ 28.903 mls/hr IV TITRATE JEANNE; Protocol Last Admin: 05/03/21 16:22 Dose: 16.19 units/kg/hr, 26 mls/hr Documented by: [id number] Cosigned by: KODY Sodium Chloride (Sodium Chloride 0.9% 10 Ml Syringe) 10 ml FLUSH ASDIRECTED PRN PRN Reason: Keep Vein Open Last Admin: 05/03/21 13:23 Dose: 10 ml Documented by: [email or web address] Labs: Laboratory Tests 05/03/21 05/03/21 05/03/21 Range/Units 13:08 13:08 13:08 WBC 10.0 (5.0-10.0) 10^3/uL RBC 3.36 L (4.6-6.2) 10^6/uL Hgb 11.3 L D (14.0-18.0) g/dL Hct 34.8 L (40.0-54.0) % MCV 103.6 H D (80-100) fL MCH 33.6 (27.0-34.0) pg MCHC 32.5 L (33.0-35.0) g/dL Plt Count 355 (150-450) 10^3/uL Neut % (Auto) 78.7 H (42.2-75.2) % Lymph % (Auto) 18.2 L (20.5-50.1) % [place] % (Auto) 1.7 L (2-8) % Eos % (Auto) 1.1 (1.0-3.0) % Baso % (Auto) 0.3 (0.0-1.0) % D-Dimer, Quantitative 2300 H (0-400) ng/mL Sodium 139 (136-145) mmol/L Potassium 4.7 (3.5-5.1) mmol/L Chloride 100 (98-107) mmol/L Carbon Dioxide 27 (21-32) mmol/L Anion Gap 16.7 H (7-13) mEq/L BUN 35 H (7-18) mg/dL Creatinine 1.51 H (0.70-1.30) mg/dL Est Cr Clr Drug Dosing 45.30 mL/min Estimated GFR (MDRD) 46 BUN/Creatinine Ratio 23.2 (No establ ref range) Glucose 111 H (70-99) mg/dL Lactic Acid (0.4-2.0) mmol/L Calcium 8.5 (8.5-10.1) mg/dL Phosphorus 4.3 (2.6-4.7) mg/dL Magnesium 2.3 (1.8-2.4) mg/dL Total Bilirubin 0.4 (0.2-1.0) mg/dL AST 37 (15-37) U/L ALT 59 (16-63) U/L Alkaline Phosphatase 87 (46-116) U/L Troponin I High Sens 518 H* (<=76) pg/mL C-Reactive Protein 2.7 H (0.0-0.9) mg/dL Total Protein 7.7 (6.4-8.2) g/dL Albumin 3.6 (3.4-5.0) g/dL Globulin 4.1 Albumin/Globulin Ratio 0.9 Amylase 66 (25-115) U/L Lipase 109 (73-393) U/L TSH, Ultra Sensitive 2.40 (0.36-3.74) uIU/mL Urine Color (YELLOW) Urine Appearance (CLEAR) Urine pH (5.0-9.0) Ur Specific [place] (1.005-1.030) Urine Protein (NEGATIVE) Urine Glucose (UA) (NEGATIVE) Urine Ketones (NEGATIVE) Urine Occult Blood (NEGATIVE) Urine Nitrite (NEGATIVE) Urine Bilirubin (NEGATIVE) Urine Urobilinogen (0.2-1.0) mg/dL Ur Leukocyte Esterase (NEGATIVE) SARS-CoV-2 RNA (MERRICK) (NEGATIVE) 05/03/21 05/03/21 05/03/21 Range/Units 13:08 13:12 13:20 WBC (5.0-10.0) 10^3/uL RBC (4.6-6.2) 10^6/uL Hgb (14.0-18.0) g/dL Hct (40.0-54.0) % MCV (80-100) fL MCH (27.0-34.0) pg MCHC (33.0-35.0) g/dL Plt Count (150-450) 10^3/uL Neut % (Auto) (42.2-75.2) % Lymph % (Auto) (20.5-50.1) % [place] % (Auto) (2-8) % Eos % (Auto) (1.0-3.0) % Baso % (Auto) (0.0-1.0) % D-Dimer, Quantitative (0-400) ng/mL Sodium (136-145) mmol/L Potassium (3.5-5.1) mmol/L Chloride (98-107) mmol/L Carbon Dioxide (21-32) mmol/L Anion Gap (7-13) mEq/L BUN (7-18) mg/dL Creatinine (0.70-1.30) mg/dL Est Cr Clr Drug Dosing mL/min Estimated GFR (MDRD) BUN/Creatinine Ratio (No establ ref range) Glucose (70-99) mg/dL Lactic Acid 2.0 (0.4-2.0) mmol/L Calcium (8.5-10.1) mg/dL Phosphorus (2.6-4.7) mg/dL Magnesium (1.8-2.4) mg/dL Total Bilirubin (0.2-1.0) mg/dL AST (15-37) U/L ALT (16-63) U/L Alkaline Phosphatase (46-116) U/L Troponin I High Sens (<=76) pg/mL C-Reactive Protein (0.0-0.9) mg/dL Total Protein (6.4-8.2) g/dL Albumin (3.4-5.0) g/dL Globulin Albumin/Globulin Ratio Amylase (25-115) U/L Lipase (73-393) U/L TSH, Ultra Sensitive (0.36-3.74) uIU/mL Urine Color Yellow (YELLOW) Urine Appearance Clear (CLEAR) Urine pH 7.0 (5.0-9.0) Ur Specific [place] 1.020 (1.005-1.030) Urine Protein Negative (NEGATIVE) Urine Glucose (UA) Negative (NEGATIVE) Urine Ketones Negative (NEGATIVE) Urine Occult Blood Negative (NEGATIVE) Urine Nitrite Negative (NEGATIVE) Urine Bilirubin Negative (NEGATIVE) Urine Urobilinogen 0.2 (0.2-1.0) mg/dL Ur Leukocyte Esterase Negative (NEGATIVE) SARS-CoV-2 RNA (MERRICK) Negative (NEGATIVE) Meds: Medications Generic Name Dose Route Start Last Admin Trade Name Freq PRN Reason Stop Dose Admin Diltiazem HCl 125 mg/ Sodium 125 mls @ 5 mls/hr 05/03/21 15:30 05/03/21 16:42 Chloride IV 7.5 mg/hr TITRATE JEANNE 7.5 mls/hr Titration Protocol 5 MG/HR Heparin Sodium/Sodium Chloride 25,000 units in 500 mls @ 28.903 mls/hr 05/03/21 16:00 05/03/21 16:22 Heparin 25,000 Units In 1/2 Ns 500 Ml IV 16.19 units/kg/hr TITRATE JEANNE 26 mls/hr Administration Protocol 18 UNITS/KG/HR Sodium Chloride 10 ml 05/03/21 13:12 05/03/21 13:23 Sodium Chloride 0.9% 10 Ml Syringe FLUSH 10 ml ASDIRECTED PRN Administration Keep Vein Open Discontinued Medications Generic Name Dose Route Start Last Admin Trade Name Freq PRN Reason Stop Dose Admin Adenosine 6 mg 05/03/21 13:30 05/03/21 13:36 Adenosine 6 Mg/2 Ml Sdv IVPUSH 05/03/21 13:31 6 mg NOW ONE Administration Adenosine Confirm 05/03/21 13:32 05/03/21 13:37 Adenosine 6 Mg/2 Ml Sdv Administered 05/03/21 13:33 Not Given Dose 6 mg .ROUTE .STK-MED ONE Adenosine 12 mg 05/03/21 13:44 05/03/21 13:40 Adenosine 6 Mg/2 Ml Sdv IVPUSH 05/03/21 13:45 12 mg NOW ONE Administration Diltiazem HCl 20 mg 05/03/21 13:43 05/03/21 13:46 Diltiazem 25 Mg/5 Ml Sdv IVPUSH 05/03/21 13:44 20 mg ONETIME ONE Administration Diltiazem HCl 20 mg 05/03/21 14:55 05/03/21 15:47 Diltiazem 25 Mg/5 Ml Sdv IVPUSH 05/03/21 14:56 10 mg ONETIME ONE Administration Diltiazem HCl 20 mg 05/03/21 16:12 05/03/21 16:16 Diltiazem 25 Mg/5 Ml Sdv IVPUSH 05/03/21 16:13 20 mg ONETIME ONE Administration Diltiazem HCl 20 mg 05/03/21 16:16 05/03/21 16:17 Diltiazem 25 Mg/5 Ml Sdv IVPUSH 05/03/21 16:17 Not Given ONETIME ONE Heparin Sodium (Porcine) 80 units 05/03/21 15:52 05/03/21 16:20 Heparin Sodium 5,000 Units/Ml Vial IVPUSH 05/03/21 15:53 5,000 units .BOLUS ONE Administration Protocol Sodium Chloride 1,000 mls @ 999 mls/hr 05/03/21 13:23 05/03/21 13:27 Normal Saline IV 05/03/21 14:23 999 mls/hr .BOLUS ONE Administration Sodium Chloride 1,000 mls @ 999 mls/hr 05/03/21 13:30 05/03/21 13:42 Normal Saline IV 05/03/21 14:30 999 mls/hr .BOLUS ONE Administration Sodium Chloride 1,000 mls @ 999 mls/hr 05/03/21 13:31 05/03/21 13:45 Normal Saline IV 05/03/21 14:31 Not Given .BOLUS ONE Ondansetron HCl 4 mg 05/03/21 13:14 05/03/21 13:27 Ondansetron 4 Mg/2 Ml Sdv IVPUSH 05/03/21 13:15 4 mg ONETIME ONE Administration - Re-Assessments/Exams Free Text/Narrative Re-Assessment/Exam: 05/03/21 15:44 The pt has new onset afib RVR and is requiring a diltiazem drip to maintain a lower HR. I am also cocnerned the pt may have a PE given his cancer hx, elevated d dimer and new onset afib. His kidney fucntion will not tolerate a PE study. I spoke to Dr. Live at the [facility] in [place] and he accepted the pt for transfer to a higher level of care. I will send the pt via ground ambulance to [place]. Departure - Departure Time of Disposition: 15:47 Disposition: DC/Tfer to [facility] 02 Reason for Transfer *Q: Primary PCI Indicated Condition: Poor Clinical Impression: Atrial fibrillation with RVR, Elevated d-dimer Lung cancer Qualifiers: Laterality: right Lung location: unspecified part of lung Qualified Code(s): C34.91 - Malignant neoplasm of unspecified part of right bronchus or lung Forms: Interfacility Transfer EMTALA Sepsis Event Note (ED) - Evaluation Sepsis Screening Result: No Definite Risk - Focused Exam Vital Signs: Vital Signs Temp Pulse Resp BP Pulse Ox 05/03/21 13:13 97.5 F 158 H 26 H 100/68 96 - My Orders Last 24 Hours: My Active Orders 05/03/21 13:08 CULTURE BLOOD [BC] Stat 05/03/21 13:12 Sodium Chloride 0.9% [Saline Flush] 10 ml FLUSH ASDIRECTED PRN Peripheral IV Insertion Adult [OM.PC] Routine 05/03/21 13:13 Peripheral IV Care [RC] . DIRECTED Blood Culture x2 Reflex Set [OM.PC] Stat 05/03/21 13:48 CULTURE BLOOD [BC] Stat 05/03/21 15:30 Diltiazem 125 mg Sodium Chloride 0.9% [Normal Saline] 100 ml IV TITRATE 05/03/21 16:00 Heparin Sodium/0.45% NaCl [Heparin 25,000 Units in 1/2 NS 500 ML] 25,000 units in 500 ml IV TITRATE - Assessment/Plan Last 24 Hours: My Active Orders 05/03/21 13:08 CULTURE BLOOD [BC] Stat 05/03/21 13:12 Sodium Chloride 0.9% [Saline Flush] 10 ml FLUSH ASDIRECTED PRN Peripheral IV Insertion Adult [OM.PC] Routine 05/03/21 13:13 Peripheral IV Care [RC] . DIRECTED Blood Culture x2 Reflex Set [OM.PC] Stat 05/03/21 13:48 CULTURE BLOOD [BC] Stat 05/03/21 15:30 Diltiazem 125 mg Sodium Chloride 0.9% [Normal Saline] 100 ml IV TITRATE 05/03/21 16:00 Heparin Sodium/0.45% NaCl [Heparin 25,000 Units in 1/2 NS 500 ML] 25,000 units in 500 ml IV TITRATE
[2021-05-03] MEDS ORDERED: Sodium Chloride 0.9% 1,000 ML IV ONE ×3 (13:23→13:31)
[2021-05-03] MEDS ORDERED: Adenosine 6 MG/2 ML SDV IVPUSH ONE ×2 (13:30→13:44)
[2021-05-03] MEDS ORDERED: Adenosine 6 MG/2 ML SDV ONE (13:32)
[2021-05-03] MEDS ORDERED: Diltiazem 25 MG/5 ML SDV IVPUSH ONE ×3 (13:43→16:16)
--- NOTE | 2021-05-03 13:43 | CR ---
EXAMINATION: Chest 1V Frontal SEX: Male AGE: 70 years CLINICAL HISTORY: 70-year-old male with tachycardia. History right-sided lung cancer and thoracentesis. Comparison CXR 22 November 2020. Interpretation: Improved. 1. Decided decrease volume of the dependent right pleural effusion since comparison film November 2020. 2. Underlying atelectasis or infiltrate RLL and subtle ipsilateral fullness (adenopathy?) Right hilum. 3. No new parenchymal lung mass lesion or left hilar lymphadenopathy. Normal tracheobronchial airway. 4. No other alveolar consolidation, air bronchograms or peripheral "groundglass" interstitial lung densities. 5. No pneumothorax or pneumomediastinum.
[2021-05-03 13:46] LABS: ANION GAP 16.7 mEq/L (7-13)
[2021-05-03] MEDS: Diltiazem 25 MG/5 ML SDV IVPUSH ONE ×2 (15:12→15:47)
[2021-05-03] MEDS ORDERED: Diltiazem 125 MG in Sodium Chloride 0.9% 100 ML IV SCH (15:30)
[2021-05-03] MEDS ORDERED: Heparin Sodium 5,000 Units/ML Vial IVPUSH ONE (15:52)
[2021-05-03] MEDS ORDERED: Heparin Sodium/0.45% NaCl 25,000 UNITS/500 ML BAG IV SCH (16:00)
== END 2021-05-03 17:55 ==
LOC: DL.ED 12:54
DX: C34.91 Malignant neoplasm of unspecified part of right bronchus or lung (principal); I48.91 Unspecified atrial fibrillation; R79.1 Abnormal coagulation profile; I47.1 Supraventricular tachycardia; J44.9 Chronic obstructive pulmonary disease, unspecified; Z20.822 Contact with and (suspected) exposure to COVID-19
CPT/HCPCS: 36415; 71045; 80053; 81003; 82150; 83605; 83690; 83735; 84100; 84443; 84484; 85025; 85379; 86140; 87040; 87635; 93005; 96365; 96367; 96375; 96376; 99285; J0153; J1644; J2405; J3490; J7030; U0002

== ENCOUNTER 2021-05-14 05:51 | Emergency (ER) | payer MEDICARE ==
--- NOTE | 2021-05-14 06:42 | EDM.PDOC ---
<Lei Smith - Last Filed: 05/14/21 08:40> ED HPI GENERAL MEDICAL PROBLEM - General Chief Complaint: Respiratory Problem Stated Complaint: TROUBLE BREATHING Time Seen by Provider: 05/14/21 06:00 - Related Data Allergies Allergy/AdvReac Type Severity Reaction Status Date / Time No Known Allergies Allergy Verified 05/03/21 13:12 Home Meds: Home Meds Albuterol Sulfate [Albuterol Sulfate Hfa] 2 sprays INH ASDIRECTED PRN 03/17/20 [History] guaiFENesin [Guaifenesin] 200 mg PO TID 11/22/20 [History] traMADol HCl [Tramadol HCl] 50 mg PO DAILY 11/22/20 [History] Course - Re-Assessments/Exams Free Text/Narrative Re-Assessment/Exam: 05/14/21 08:40 The patient reported he is feeling better, but continues to have some shortness of breath without the oxygen. The patient's oxygen saturation remained between 94-95% on room air. The patient believes he currently feels well enough to go home. Departure - Departure Time of Disposition: 08:42 Disposition: Home, Self-Care 01 Condition: Fair Clinical Impression: Pleural effusion, right COPD (chronic obstructive pulmonary disease) Qualifiers: COPD type: unspecified COPD Qualified Code(s): J44.9 - Chronic obstructive pulmonary disease, unspecified - Discharge Information *PRESCRIPTION DRUG MONITORING PROGRAM REVIEWED*: Not Applicable *COPY OF PRESCRIPTION DRUG MONITORING REPORT IN PATIENT DANETTE: Not Applicable Instructions: Shortness of Breath, Adult, Enkb-[id number], Chronic Obstructive Pulmonary Disease, [id number] Forms: ED Department Discharge Care Plan Goals: The patient was advised of the examination, lab and x-ray results during the visit. The patient was given an IV dose of Lasix while in the ED. The patient was encouraged to follow-up with his primary care facility tomorrow as scheduled and visit his specialist on Saturday as scheduled. If the patient has any additional symptoms or concerns, the patient should either return to the emergency department or visit his primary care facility. <Jammie Ferguson - Last Filed: 05/15/21 06:28> ED HPI GENERAL MEDICAL PROBLEM - General Source of Information: Reports: Patient History Limitations: Reports: No Limitations - History of Present Illness INITIAL COMMENTS - FREE TEXT/NARRATIVE: ED with c/o shortness of breath, No chest pain. Hx pleural vac and out put 0 today, usually has been 100 ml every 3-4 days and nothing since . Had diarrhea on Saturday so quit taking water pill, and not since. No fever or chills. Occasional cough. No vomiting. Diarrhea resolved. Denied chest type pain. Hx COPD, Stage 4 Lung Cancer, Recent Afib with RVR and subsequent tx to [facility]. Onset: Today Past Medical History HEENT History: Reports: None Cardiovascular History: Reports: None Respiratory History: Reports: COPD Gastrointestinal History: Reports: GERD Genitourinary History: Reports: None Musculoskeletal History: Reports: None Neurological History: Reports: Head Trauma Psychiatric History: Reports: Anxiety Endocrine/Metabolic History: Reports: None Hematologic History: Reports: None Immunologic History: Reports: None Oncologic (Cancer) History: Reports: Bladder, Lung Dermatologic History: Reports: None - Infectious Disease History Infectious Disease History: Reports: None - Past Surgical History Head Surgeries/Procedures: Reports: None Oncologic Surgical History: Reports: Other (See Below) Other Oncologic Surgeries/Procedures: Did a scraping. Social & Family History - Family History Family Medical History: No Pertinent Family History - Caffeine Use Caffeine Use: Reports: Coffee ED ROS GENERAL - Review of Systems Review Of Systems: Comprehensive ROS is negative, except as noted in HPI. Respiratory: Reports: Shortness of Breath ED EXAM, GENERAL - Physical Exam Exam: See Below Exam Limited By: No Limitations General Appearance: Alert, Anxious, Mild Distress Eye Exam: Bilateral Eye: EOMI Ears: Normal External Exam, Hearing Grossly Normal Nose: Normal Inspection Throat/Mouth: Normal Inspection, Normal Lips, Normal Voice Head: Atraumatic, Normocephalic Neck: Normal Inspection, Full Range of Motion, Limited Range of Motion Respiratory/Chest: No Respiratory Distress, Rales (fine mid to base bilateral) Cardiovascular: Normal Peripheral Pulses, Regular Rate, Rhythm, Irregularly Irregular GI/Abdominal: Normal Bowel Sounds, Soft Back Exam: Full Range of Motion, Other (pleural vac dressing) Extremities: Normal Inspection, Normal Range of Motion Neurological: Alert, Oriented, Normal Cognition Psychiatric: Flat Affect Skin Exam: Warm, Dry, Pallor #1 Interpretation EKG Date: 05/14/21 Time: 06:01 Rhythm: A-Fib Rate (Beats/Min): 77 Comparison: Change From Previous EKG Course - Vital Signs Last Recorded V/S: Last Vital Signs Temp Pulse 74 05/14/21 06:00 Resp 28 H 05/14/21 06:00 BP 157/80 H 05/14/21 06:00 Pulse Ox 93 L 05/14/21 06:00 - Orders/Labs/Meds Labs: Laboratory Tests 05/14/21 05/14/21 05/14/21 Range/Units 06:30 06:35 06:35 WBC 8.6 (5.0-10.0) 10^3/uL RBC 2.70 L (4.6-6.2) 10^6/uL Hgb 9.1 L D (14.0-18.0) g/dL Hct 28.3 L (40.0-54.0) % MCV 104.8 H (80-100) fL MCH 33.7 (27.0-34.0) pg MCHC 32.2 L (33.0-35.0) g/dL Plt Count 247 D (150-450) 10^3/uL Neut % (Auto) 64.5 (42.2-75.2) % Lymph % (Auto) 21.5 (20.5-50.1) % [place] % (Auto) 12.3 H (2-8) % Eos % (Auto) 1.2 (1.0-3.0) % Baso % (Auto) 0.5 (0.0-1.0) % Add Manual Diff Yes Neutrophils % (Manual) 67 (42-75) % Band Neutrophils % 1 % Lymphocytes % (Manual) 22 (20-50) % Monocytes % (Manual) 10 H (2-8) % Hypochromasia 1+ slight Microcytosis 1+ slight D-Dimer, Quantitative 501 H (0-400) ng/mL Sodium (136-145) mmol/L Potassium (3.5-5.1) mmol/L Chloride (98-107) mmol/L Carbon Dioxide (21-32) mmol/L Anion Gap (7-13) mEq/L BUN (7-18) mg/dL Creatinine (0.70-1.30) mg/dL Est Cr Clr Drug Dosing Estimated GFR (MDRD) BUN/Creatinine Ratio (No establ ref range) Glucose (70-99) mg/dL Calcium (8.5-10.1) mg/dL Magnesium (1.8-2.4) mg/dL Total Bilirubin (0.2-1.0) mg/dL AST (15-37) U/L ALT (16-63) U/L Alkaline Phosphatase (46-116) U/L B-Natriuretic Peptide (0-100) pg/ml Total Protein (6.4-8.2) g/dL Albumin (3.4-5.0) g/dL Globulin Albumin/Globulin Ratio Amylase (25-115) U/L Lipase (73-393) U/L SARS-CoV-2 RNA (MERRICK) Negative (NEGATIVE) 05/14/21 Range/Units 06:35 WBC (5.0-10.0) 10^3/uL RBC (4.6-6.2) 10^6/uL Hgb (14.0-18.0) g/dL Hct (40.0-54.0) % MCV (80-100) fL MCH (27.0-34.0) pg MCHC (33.0-35.0) g/dL Plt Count (150-450) 10^3/uL Neut % (Auto) (42.2-75.2) % Lymph % (Auto) (20.5-50.1) % [place] % (Auto) (2-8) % Eos % (Auto) (1.0-3.0) % Baso % (Auto) (0.0-1.0) % Add Manual Diff Neutrophils % (Manual) (42-75) % Band Neutrophils % % Lymphocytes % (Manual) (20-50) % Monocytes % (Manual) (2-8) % Hypochromasia Microcytosis D-Dimer, Quantitative (0-400) ng/mL Sodium 139 (136-145) mmol/L Potassium 5.1 (3.5-5.1) mmol/L Chloride 104 (98-107) mmol/L Carbon Dioxide 26 (21-32) mmol/L Anion Gap 14.1 H (7-13) mEq/L BUN 29 H (7-18) mg/dL Creatinine 1.78 H (0.70-1.30) mg/dL Est Cr Clr Drug Dosing TNP Estimated GFR (MDRD) 38 BUN/Creatinine Ratio 16.3 (No establ ref range) Glucose 102 H (70-99) mg/dL Calcium 8.6 (8.5-10.1) mg/dL Magnesium 2.3 (1.8-2.4) mg/dL Total Bilirubin 0.3 (0.2-1.0) mg/dL AST 24 (15-37) U/L ALT 45 (16-63) U/L Alkaline Phosphatase 82 (46-116) U/L B-Natriuretic Peptide 587 H (0-100) pg/ml Total Protein 7.0 (6.4-8.2) g/dL Albumin 3.4 (3.4-5.0) g/dL Globulin 3.6 Albumin/Globulin Ratio 0.9 Amylase 78 (25-115) U/L Lipase 195 (73-393) U/L SARS-CoV-2 RNA (MERRICK) (NEGATIVE) Meds: Medications Discontinued Medications Generic Name Dose Route Start Last Admin Trade Name Freq PRN Reason Stop Dose Admin Furosemide 40 mg 05/14/21 07:35 05/14/21 07:42 Furosemide 40 Mg/4 Ml Vial IVPUSH 05/14/21 07:36 40 mg ONETIME ONE Administration
[2021-05-14 07:19] LABS: ANION GAP 14.1 mEq/L (7-13); CHLORIDE,CL 104 mmol/L (98-107); SODIUM,NA 139 mmol/L (136-145)
[2021-05-14] MEDS ORDERED: Furosemide 40 MG/4 ML VIAL IVPUSH ONE (07:35)
--- NOTE | 2021-05-14 07:40 | CR ---
PROCEDURE INFORMATION: Exam: XR Chest Exam date and time: 05/14/2021 6:50 AM Age: 71 years old Clinical indication: Shortness of breath; Prior surgery; Surgery date: 1-6 months; Surgery type: Thoracentesis, pleur-evac placed in December 2020; Patient HX: HX right sided lung cancer and thoracentesis; Additional info: SOB TECHNIQUE: Imaging protocol: XR of the chest. Views: 2 views. COMPARISON: CR Chest 1V Frontal 05/03/2021 1:17 PM FINDINGS: Tubes, catheters and devices: The right chest tube is unchanged in position. Lungs: Right lower lobe airspace disease appears slightly decreased but has not completely resolved. Pleural spaces: Again noted is a small right pleural effusion. There is no pneumothorax. Heart/Mediastinum: Heart size is stable. Bones/joints: There is no acute osseous abnormality. IMPRESSION: There is no pneumothorax. Right lower lobe opacities are slightly decreased. The pleural effusion is unchanged.
== END 2021-05-14 08:52 | disposition home or self-care (01) ==
LOC: DL.ED 05:51
DX: J44.9 Chronic obstructive pulmonary disease, unspecified (principal); J90 Pleural effusion, not elsewhere classified; I48.91 Unspecified atrial fibrillation; K21.9 Gastro-esophageal reflux disease without esophagitis; Z20.822 Contact with and (suspected) exposure to COVID-19
CPT/HCPCS: 36415; 71046; 80053; 82150; 83690; 83735; 83880; 85025; 85379; 93005; 96374; 99285; J1940; U0002

== ENCOUNTER 2021-07-08 16:57 | Inpatient (IN) | payer OTHER, MEDICARE ==
[2021-07-08] MEDS ORDERED: Sodium Chloride 0.9% 10 ML Syringe FLUSH PRN (17:01)
[2021-07-08] MEDS ORDERED: LORazepam 2 MG/ML SDV IVPUSH ONE (17:03)
[2021-07-08] MEDS ORDERED: LORazepam 2 MG/ML SDV ONE (17:05)
[2021-07-08 17:44] LABS: AMPHETAMINES,URINE NEGATIVE (NEGATIVE); BARBITURATES,URINE NEGATIVE (NEGATIVE); BENZODIAZEPINE,URINE NEGATIVE (NEGATIVE); MDMA (ECSTASY), URINE NEGATIVE (NEGATIVE); METHADONE,URINE NEGATIVE (NEGATIVE); METHAMPHETAMINES,URINE NEGATIVE (NEGATIVE); OPIATES,URINE POSITIVE (NEGATIVE); OXYCODONE,URINE POSITIVE (NEGATIVE); PHENCYCLIDINE,URINE NEGATIVE (NEGATIVE); TCA,URINE NEGATIVE (NEGATIVE)
[2021-07-08 17:51] LABS: ANION GAP 17.7 mEq/L (7-13); CHLORIDE,CL 100 mmol/L (98-107); SODIUM,NA 135 mmol/L (136-145)
[2021-07-08 18:01] LABS: CORONAVIRUS COVID-19 NAA NEGATIVE (NEGATIVE)
[2021-07-08] MEDS ORDERED: Furosemide 40 MG/4 ML VIAL IVPUSH ONE (18:07)
[2021-07-08 18:46] LABS: BASE EXCESS ARTERIAL 1 mmol/L ((-2)-(+3)); BICARBONATE,ARTERIAL 23.1 mmol/L (22-26); O2 DELIVERY DEVICE NASAL CANNULA; O2 SATURATION ARTERIAL 94 % (95-100); PCO2 ARTERIAL 31 mmHg (35-45); PO2 ARTERIAL 65 mmHg (70-100)
[2021-07-08 18:49] LABS: ALLEN TEST pos; O2 FLOW RATE 4
[2021-07-08] MEDS ORDERED: cefTRIAXone 2 GM in Sodium Chloride 0.9% 100 ML IV ONE (19:01)
[2021-07-08] MEDS ORDERED: 50% Dextrose in Water 50 ML Syringe IVPUSH PRN (21:20)
[2021-07-08] MEDS ORDERED: Ondansetron 4 MG Tab.DIS PO PRN (21:25)
[2021-07-08] MEDS ORDERED: Docusate Sodium 100 MG Cap PO PRN (21:25)
[2021-07-08] MEDS ORDERED: Ibuprofen 400 MG Tab PO PRN (21:27)
[2021-07-08] MEDS ORDERED: Acetaminophen 650 MG Supp RECTAL PRN (21:30)
[2021-07-08] MEDS: Ketorolac 30 MG/ML SDV IVPUSH PRN (22:10)
[2021-07-08] MEDS: LORazepam 2 MG/ML SDV IVPUSH PRN (22:22)
[2021-07-08] MEDS: Famotidine 20 MG/2 ML SDV IVPUSH SCH (22:23)
[2021-07-09] MEDS: LORazepam 2 MG/ML SDV IVPUSH PRN ×2 (02:07→05:51)
[2021-07-09] MEDS: Ketorolac 30 MG/ML SDV IVPUSH PRN ×2 (04:05→11:13)
[2021-07-09 06:15] LABS: ANION GAP 13.9 mEq/L (7-13)
[2021-07-09] MEDS ORDERED: Water For Injection, Sterile 20 ML ONE (08:09)
[2021-07-09] MEDS: Nicotine 7 MG/24 Hr Patch TRDERM SCH (08:13)
[2021-07-09] MEDS: Folic Acid 1 MG Tab PO SCH (08:14)
[2021-07-09] MEDS: Apixaban 5 MG Tab PO SCH ×2 (08:15→20:40)
[2021-07-09] MEDS: Metoprolol Tartrate 25 MG Tab PO SCH ×2 (08:15→20:41)
[2021-07-09] MEDS: Furosemide 40 MG Tab PO SCH (08:15)
[2021-07-09] MEDS: Insulin Lispro 100 Units/ML 3 ML Vial SUBCUT SCH ×4 (08:23→20:34)
[2021-07-09] MEDS: Famotidine 20 MG/2 ML SDV IVPUSH SCH ×2 (08:35→20:34)
[2021-07-09] MEDS: Budesonide 0.5 MG/2 ML Neb Susp NEB SCH ×2 (11:43→18:50)
[2021-07-09] MEDS: Albuterol/Ipratropium 3.0-0.5 MG/3 ML Neb Soln NEB SCH ×3 (11:44→18:50)
[2021-07-09] MEDS: NS + KCl 20mEq/L 1,000 ML IV SCH (15:30)
[2021-07-09] MEDS: Sodium Chloride 0.9% 10 ML Syringe FLUSH PRN (20:36)
[2021-07-09] MEDS: cefTRIAXone 1 GM in Sodium Chloride 0.9% 50 ML IV SCH (20:46)
[2021-07-10] MEDS: Albuterol/Ipratropium 3.0-0.5 MG/3 ML Neb Soln NEB SCH ×4 (05:37→18:20)
[2021-07-10] MEDS: Budesonide 0.5 MG/2 ML Neb Susp NEB SCH ×2 (07:43→18:20)
[2021-07-10] MEDS: Insulin Lispro 100 Units/ML 3 ML Vial SUBCUT SCH ×4 (08:11→22:36)
[2021-07-10] MEDS: Apixaban 5 MG Tab PO SCH ×2 (08:12→20:35)
[2021-07-10] MEDS: Folic Acid 1 MG Tab PO SCH (09:50)
[2021-07-10] MEDS: Furosemide 40 MG Tab PO SCH (09:50)
[2021-07-10] MEDS: Metoprolol Tartrate 25 MG Tab PO SCH ×2 (09:50→20:36)
[2021-07-10] MEDS: LORazepam 2 MG/ML SDV IVPUSH PRN ×2 (09:51→20:34)
[2021-07-10] MEDS: Famotidine 20 MG/2 ML SDV IVPUSH SCH ×2 (09:51→20:42)
[2021-07-10] MEDS: NS + KCl 20mEq/L 1,000 ML IV SCH (10:00)
[2021-07-10] MEDS: Nicotine 7 MG/24 Hr Patch TRDERM SCH (10:04)
[2021-07-10] MEDS: Acetaminophen 325 MG Tab PO PRN (12:43)
[2021-07-10] MEDS: PARoxetine 20 MG Tab PO SCH (12:44)
[2021-07-10] MEDS: cefTRIAXone 1 GM in Sodium Chloride 0.9% 50 ML IV SCH (20:42)
[2021-07-10] MEDS ORDERED: Calcium Carbonate 500 MG Tab.Chew PO PRN (21:18)
[2021-07-10] MEDS: Ketorolac 30 MG/ML SDV IVPUSH PRN (21:30)
[2021-07-10] MEDS ORDERED: oxyCODONE 5 MG Tab PO ONE (22:17)
[2021-07-10] MEDS: LORazepam 0.5 MG Tab PO PRN (23:28)
[2021-07-11] MEDS: LORazepam 2 MG/ML SDV IVPUSH PRN ×3 (00:06→21:55)
[2021-07-11] MEDS: Ketorolac 30 MG/ML SDV IVPUSH PRN (04:05)
[2021-07-11] MEDS ORDERED: LORazepam 2 MG/ML SDV IVPUSH ONE (04:48)
[2021-07-11] MEDS: LORazepam 0.5 MG Tab PO PRN (05:36)
[2021-07-11] MEDS: NS + KCl 20mEq/L 1,000 ML IV SCH (06:34)
[2021-07-11 07:24] LABS: ANION GAP 18.6 mEq/L (7-13)
[2021-07-11] MEDS: Albuterol/Ipratropium 3.0-0.5 MG/3 ML Neb Soln NEB SCH ×3 (07:27→18:44)
[2021-07-11] MEDS: Budesonide 0.5 MG/2 ML Neb Susp NEB SCH ×2 (07:27→18:44)
[2021-07-11] MEDS: Insulin Lispro 100 Units/ML 3 ML Vial SUBCUT SCH ×4 (08:19→22:24)
[2021-07-11] MEDS: PARoxetine 20 MG Tab PO SCH (08:20)
[2021-07-11] MEDS: Folic Acid 1 MG Tab PO SCH (08:20)
[2021-07-11] MEDS: Apixaban 5 MG Tab PO SCH ×2 (08:20→21:34)
[2021-07-11] MEDS: Metoprolol Tartrate 25 MG Tab PO SCH ×2 (08:20→21:41)
[2021-07-11] MEDS: Furosemide 40 MG Tab PO SCH (08:20)
[2021-07-11] MEDS: Nicotine 14 MG/24 Hr Patch TRDERM SCH (08:23)
[2021-07-11] MEDS: Famotidine 20 MG/2 ML SDV IVPUSH SCH ×2 (08:26→21:33)
[2021-07-11] MEDS: oxyCODONE 5 MG Tab PO PRN (11:12)
[2021-07-11] MEDS: Morphine 15 MG Tab.ER PO SCH ×2 (12:47→21:44)
[2021-07-11] MEDS: Mirtazapine 15 MG Tab PO SCH (21:34)
[2021-07-11] MEDS: cefTRIAXone 1 GM in Sodium Chloride 0.9% 50 ML IV SCH (21:41)
[2021-07-12] MEDS: NS + KCl 20mEq/L 1,000 ML IV SCH ×2 (03:31→23:14)
[2021-07-12] MEDS: Insulin Lispro 100 Units/ML 3 ML Vial SUBCUT SCH ×4 (08:14→22:52)
[2021-07-12] MEDS: Furosemide 40 MG Tab PO SCH (08:15)
[2021-07-12] MEDS: Morphine 15 MG Tab.ER PO SCH ×2 (08:15→22:53)
[2021-07-12] MEDS: Folic Acid 1 MG Tab PO SCH (08:16)
[2021-07-12] MEDS: Metoprolol Tartrate 25 MG Tab PO SCH ×2 (08:16→22:57)
[2021-07-12] MEDS: Nicotine 14 MG/24 Hr Patch TRDERM SCH (08:16)
[2021-07-12] MEDS: Apixaban 5 MG Tab PO SCH ×2 (08:16→22:54)
[2021-07-12] MEDS: Famotidine 20 MG/2 ML SDV IVPUSH SCH ×2 (08:23→22:49)
[2021-07-12] MEDS: Budesonide 0.5 MG/2 ML Neb Susp NEB SCH ×2 (08:34→18:41)
[2021-07-12] MEDS: Albuterol/Ipratropium 3.0-0.5 MG/3 ML Neb Soln NEB SCH ×3 (08:34→18:41)
[2021-07-12] MEDS: cefTRIAXone 1 GM in Sodium Chloride 0.9% 50 ML IV SCH (22:54)
[2021-07-12] MEDS: Mirtazapine 15 MG Tab PO SCH (22:54)
[2021-07-13] MEDS: Budesonide 0.5 MG/2 ML Neb Susp NEB SCH ×2 (07:45→18:41)
[2021-07-13] MEDS: Albuterol/Ipratropium 3.0-0.5 MG/3 ML Neb Soln NEB SCH ×3 (07:45→18:41)
[2021-07-13 07:46] LABS: ANION GAP 12.1 mEq/L (7-13)
[2021-07-13] MEDS ORDERED: predniSONE 20 MG Tab PO SCH (08:00)
[2021-07-13] MEDS: Famotidine 20 MG/2 ML SDV IVPUSH SCH ×2 (09:15→21:18)
[2021-07-13] MEDS: Insulin Lispro 100 Units/ML 3 ML Vial SUBCUT SCH ×4 (09:15→21:32)
[2021-07-13] MEDS: Furosemide 40 MG Tab PO SCH (09:18)
[2021-07-13] MEDS: Folic Acid 1 MG Tab PO SCH (09:19)
[2021-07-13] MEDS: Apixaban 5 MG Tab PO SCH ×2 (09:19→21:05)
[2021-07-13] MEDS: Morphine 15 MG Tab.ER PO SCH ×2 (09:19→21:04)
[2021-07-13] MEDS: Metoprolol Tartrate 25 MG Tab PO SCH ×2 (09:20→21:05)
[2021-07-13] MEDS: Nicotine 14 MG/24 Hr Patch TRDERM SCH (09:22)
[2021-07-13] MEDS: predniSONE 20 MG Tab PO SCH (14:05)
[2021-07-13] MEDS: NS + KCl 20mEq/L 1,000 ML IV SCH (19:39)
[2021-07-13] MEDS: Mirtazapine 15 MG Tab PO SCH (21:06)
[2021-07-13] MEDS: cefTRIAXone 1 GM in Sodium Chloride 0.9% 50 ML IV SCH (21:23)
[2021-07-13] MEDS: oxyCODONE 5 MG Tab PO PRN (21:41)
[2021-07-14] MEDS: Albuterol/Ipratropium 3.0-0.5 MG/3 ML Neb Soln NEB SCH ×3 (07:53→18:53)
[2021-07-14] MEDS: Budesonide 0.5 MG/2 ML Neb Susp NEB SCH ×2 (07:53→18:53)
[2021-07-14] MEDS: predniSONE 20 MG Tab PO SCH (08:55)
[2021-07-14] MEDS: Folic Acid 1 MG Tab PO SCH (08:56)
[2021-07-14] MEDS: Morphine 15 MG Tab.ER PO SCH ×2 (08:56→22:11)
[2021-07-14] MEDS: Apixaban 5 MG Tab PO SCH ×2 (08:56→22:10)
[2021-07-14] MEDS: Furosemide 40 MG Tab PO SCH (08:56)
[2021-07-14] MEDS: Nicotine 14 MG/24 Hr Patch TRDERM SCH (08:57)
[2021-07-14] MEDS: Famotidine 20 MG/2 ML SDV IVPUSH SCH ×2 (08:57→22:04)
[2021-07-14] MEDS: Metoprolol Tartrate 25 MG Tab PO SCH ×2 (08:57→22:10)
[2021-07-14] MEDS: Insulin Lispro 100 Units/ML 3 ML Vial SUBCUT SCH ×4 (09:16→22:09)
[2021-07-14] MEDS ORDERED: oxyCODONE 5 MG Tab PO PRN (11:15)
[2021-07-14] MEDS: Sodium Chloride 0.9% 10 ML Syringe FLUSH PRN (22:04)
[2021-07-14] MEDS: Mirtazapine 15 MG Tab PO SCH (22:11)
[2021-07-15] MEDS: Budesonide 0.5 MG/2 ML Neb Susp NEB SCH ×2 (07:30→20:29)
[2021-07-15] MEDS: Albuterol/Ipratropium 3.0-0.5 MG/3 ML Neb Soln NEB SCH ×3 (07:30→20:29)
[2021-07-15 07:51] LABS: ANION GAP 11.2 mEq/L (7-13)
[2021-07-15] MEDS: Morphine 15 MG Tab.ER PO SCH ×2 (08:20→20:27)
[2021-07-15] MEDS: Furosemide 40 MG Tab PO SCH (08:20)
[2021-07-15] MEDS: predniSONE 20 MG Tab PO SCH (08:20)
[2021-07-15] MEDS: Apixaban 5 MG Tab PO SCH ×2 (08:20→20:27)
[2021-07-15] MEDS: Folic Acid 1 MG Tab PO SCH (08:21)
[2021-07-15] MEDS: Metoprolol Tartrate 25 MG Tab PO SCH ×2 (08:21→20:28)
[2021-07-15] MEDS: Famotidine 20 MG/2 ML SDV IVPUSH SCH (08:23)
[2021-07-15] MEDS: Insulin Lispro 100 Units/ML 3 ML Vial SUBCUT SCH ×4 (08:26→20:28)
[2021-07-15] MEDS: Nicotine 14 MG/24 Hr Patch TRDERM SCH (08:27)
[2021-07-15] MEDS: Mirtazapine 15 MG Tab PO SCH (20:27)
[2021-07-15] MEDS ORDERED: Famotidine 20 MG Tab PO SCH (21:00)
[2021-07-16] MEDS: Albuterol/Ipratropium 3.0-0.5 MG/3 ML Neb Soln NEB SCH ×4 (05:54→18:52)
[2021-07-16] MEDS: Budesonide 0.5 MG/2 ML Neb Susp NEB SCH ×3 (05:54→18:52)
[2021-07-16] MEDS: Insulin Lispro 100 Units/ML 3 ML Vial SUBCUT SCH ×4 (07:56→21:02)
[2021-07-16] MEDS: predniSONE 20 MG Tab PO SCH (07:57)
[2021-07-16] MEDS: Folic Acid 1 MG Tab PO SCH (08:00)
[2021-07-16] MEDS: Polyethylene Glycol 3350 Powder 17 GM Packet PO SCH (08:00)
[2021-07-16] MEDS: Famotidine 20 MG Tab PO SCH (08:00)
[2021-07-16] MEDS: Furosemide 40 MG Tab PO SCH (08:00)
[2021-07-16] MEDS: Nicotine 14 MG/24 Hr Patch TRDERM SCH (08:00)
[2021-07-16] MEDS: Morphine 15 MG Tab.ER PO SCH ×2 (08:01→21:03)
[2021-07-16] MEDS: Apixaban 5 MG Tab PO SCH ×2 (08:02→21:02)
[2021-07-16] MEDS: Metoprolol Tartrate 25 MG Tab PO SCH ×2 (08:06→21:02)
[2021-07-16] MEDS: Mirtazapine 15 MG Tab PO SCH (21:03)
[2021-07-16] MEDS: Sodium Chloride 0.9% 10 ML Syringe FLUSH PRN (21:04)
[2021-07-17] MEDS: Acetaminophen 325 MG Tab PO PRN (02:15)
[2021-07-17] MEDS: Budesonide 0.5 MG/2 ML Neb Susp NEB SCH ×2 (07:27→18:51)
[2021-07-17] MEDS: Albuterol/Ipratropium 3.0-0.5 MG/3 ML Neb Soln NEB SCH ×3 (07:27→18:51)
[2021-07-17] MEDS: Insulin Lispro 100 Units/ML 3 ML Vial SUBCUT SCH ×4 (08:49→21:29)
[2021-07-17] MEDS: Polyethylene Glycol 3350 Powder 17 GM Packet PO SCH (08:49)
[2021-07-17] MEDS: Apixaban 5 MG Tab PO SCH ×2 (08:50→21:29)
[2021-07-17] MEDS: Furosemide 40 MG Tab PO SCH (08:50)
[2021-07-17] MEDS: Folic Acid 1 MG Tab PO SCH (08:50)
[2021-07-17] MEDS: predniSONE 20 MG Tab PO SCH (08:51)
[2021-07-17] MEDS: Morphine 15 MG Tab.ER PO SCH ×2 (08:51→21:27)
[2021-07-17] MEDS: Famotidine 20 MG Tab PO SCH (08:51)
[2021-07-17] MEDS: Metoprolol Tartrate 25 MG Tab PO SCH ×2 (08:53→21:28)
[2021-07-17] MEDS: Nicotine 14 MG/24 Hr Patch TRDERM SCH (08:54)
[2021-07-17] MEDS: Mirtazapine 15 MG Tab PO SCH (21:29)
[2021-07-18] MEDS: Acetaminophen 325 MG Tab PO PRN (06:02)
[2021-07-18 06:59] LABS: ANION GAP 14.2 mEq/L (7-13)
[2021-07-18] MEDS: Albuterol/Ipratropium 3.0-0.5 MG/3 ML Neb Soln NEB SCH ×3 (07:27→18:27)
[2021-07-18] MEDS: Budesonide 0.5 MG/2 ML Neb Susp NEB SCH ×2 (07:28→18:27)
[2021-07-18] MEDS: Insulin Lispro 100 Units/ML 3 ML Vial SUBCUT SCH ×4 (08:13→21:07)
[2021-07-18] MEDS: Apixaban 5 MG Tab PO SCH (09:18)
[2021-07-18] MEDS: predniSONE 20 MG Tab PO SCH (09:18)
[2021-07-18] MEDS: Morphine 15 MG Tab.ER PO SCH (09:19)
[2021-07-18] MEDS: Folic Acid 1 MG Tab PO SCH (09:19)
[2021-07-18] MEDS: Furosemide 40 MG Tab PO SCH (09:19)
[2021-07-18] MEDS: Famotidine 20 MG Tab PO SCH (09:19)
[2021-07-18] MEDS: Nicotine 14 MG/24 Hr Patch TRDERM SCH (09:20)
[2021-07-18] MEDS: Polyethylene Glycol 3350 Powder 17 GM Packet PO SCH (09:20)
[2021-07-18] MEDS: Metoprolol Tartrate 25 MG Tab PO SCH (09:20)
[2021-07-18] MEDS: LORazepam 0.5 MG Tab PO PRN (12:46)
[2021-07-18] MEDS ORDERED: LORazepam 2 MG/ML SDV IVPUSH ONE (18:30)
[2021-07-18] MEDS ORDERED: Bisacodyl 10 MG Supp RECTAL PRN (18:52)
[2021-07-18] MEDS: Haloperidol Lactate 5 MG/ML SDV IM PRN ×2 (19:00→19:09)
[2021-07-19] MEDS: Apixaban 5 MG Tab PO SCH ×3 (02:47→09:43)
[2021-07-19] MEDS: Mirtazapine 15 MG Tab PO SCH (02:47)
[2021-07-19] MEDS: Metoprolol Tartrate 25 MG Tab PO SCH ×3 (02:47→09:43)
[2021-07-19] MEDS: Morphine 15 MG Tab.ER PO SCH ×3 (02:47→09:43)
[2021-07-19 07:10] LABS: ANION GAP 13.8 mEq/L (7-13)
[2021-07-19] MEDS: Albuterol/Ipratropium 3.0-0.5 MG/3 ML Neb Soln NEB SCH ×2 (07:39→13:31)
[2021-07-19] MEDS: Budesonide 0.5 MG/2 ML Neb Susp NEB SCH (07:39)
[2021-07-19] MEDS: LORazepam 0.5 MG Tab PO PRN (09:25)
[2021-07-19] MEDS: Famotidine 20 MG Tab PO SCH ×2 (09:26→09:43)
[2021-07-19] MEDS: predniSONE 20 MG Tab PO SCH ×2 (09:26→09:43)
[2021-07-19] MEDS: Furosemide 40 MG Tab PO SCH ×2 (09:26→09:43)
[2021-07-19] MEDS: Folic Acid 1 MG Tab PO SCH ×2 (09:26→09:43)
[2021-07-19] MEDS: Nicotine 14 MG/24 Hr Patch TRDERM SCH (09:27)
[2021-07-19] MEDS: Polyethylene Glycol 3350 Powder 17 GM Packet PO SCH ×2 (09:27→09:43)
[2021-07-19] MEDS: Insulin Lispro 100 Units/ML 3 ML Vial SUBCUT SCH ×3 (09:28→17:17)
[2021-07-19] MEDS ORDERED: Haloperidol Lactate 5 MG/ML SDV IM PRN (11:31)
[2021-07-19] MEDS: Haloperidol Lactate 5 MG/ML SDV IM PRN (12:02)
[2021-07-19] MEDS ORDERED: Morphine 10 MG/0.5 ML Oral Syringe SL PRN (13:45)
[2021-07-19] MEDS ORDERED: Scopolamine 1.5 MG Transdermal Patch TRDERM PRN (17:44)
[2021-07-20] MEDS: Nicotine 14 MG/24 Hr Patch TRDERM SCH (09:14)
[2021-07-21] MEDS: Nicotine 14 MG/24 Hr Patch TRDERM SCH (08:18)
[2021-07-21] MEDS: Haloperidol Lactate 5 MG/ML SDV IM PRN ×2 (09:54→23:06)
[2021-07-21] MEDS ORDERED: Loperamide 2 MG Cap PO PRN (17:40)
[2021-07-21] MEDS: Mirtazapine 15 MG Tab PO SCH (20:17)
[2021-07-22] MEDS: Nicotine 14 MG/24 Hr Patch TRDERM SCH (09:13)
[2021-07-22] MEDS: Haloperidol Lactate 5 MG/ML SDV IM PRN (17:14)
[2021-07-22] MEDS: Mirtazapine 15 MG Tab PO SCH (20:46)
[2021-07-23] MEDS: Nicotine 14 MG/24 Hr Patch TRDERM SCH (08:27)
[2021-07-23] MEDS: Haloperidol Lactate 5 MG/ML SDV IM PRN (22:51)
[2021-07-23] MEDS: Mirtazapine 15 MG Tab PO SCH (22:51)
[2021-07-24] MEDS: Nicotine 14 MG/24 Hr Patch TRDERM SCH (08:40)
[2021-07-24] MEDS: Mirtazapine 15 MG Tab PO SCH (21:11)
[2021-07-24] MEDS: Haloperidol Lactate 5 MG/ML SDV IM PRN (22:13)
[2021-07-25] MEDS: Nicotine 14 MG/24 Hr Patch TRDERM SCH (08:11)
[2021-07-25] MEDS: Mirtazapine 15 MG Tab PO SCH (20:31)
[2021-07-25] MEDS: Haloperidol Lactate 5 MG/ML SDV IM PRN (22:16)
[2021-07-26] MEDS: Nicotine 14 MG/24 Hr Patch TRDERM SCH (08:59)
== END 2021-07-26 10:45 | disposition other institution (70) | DRG 947 ==
LOC: DL.ED 16:57 → DL.MS 19:04
PROVIDERS: ADMIT Internal Medicine; ATTEND Internal Medicine
DX: I50.9 Heart failure, unspecified (principal); R09.02 Hypoxemia; G93.40 Encephalopathy, unspecified; D72.828 Other elevated white blood cell count; I48.91 Unspecified atrial fibrillation; R41.82 Altered mental status, unspecified; J96.01 Acute respiratory failure with hypoxia; C34.91 Malignant neoplasm of unspecified part of right bronchus or lung; J90 Pleural effusion, not elsewhere classified; J93.9 Pneumothorax, unspecified; E87.1 Hypo-osmolality and hyponatremia; I48.0 Paroxysmal atrial fibrillation; Z79.01 Long term (current) use of anticoagulants; G89.29 Other chronic pain; Z92.21 Personal history of antineoplastic chemotherapy; Z92.25 Personal history of immunosuppression therapy; N18.30 Chronic kidney disease, stage 3 unspecified; J44.9 Chronic obstructive pulmonary disease, unspecified; Z51.5 Encounter for palliative care; Z79.899 Other long term (current) drug therapy; R73.9 Hyperglycemia, unspecified; Z66 Do not resuscitate; H91.90 Unspecified hearing loss, unspecified ear; H54.7 Unspecified visual loss; K21.9 Gastro-esophageal reflux disease without esophagitis; F41.9 Anxiety disorder, unspecified; Z85.118 Personal history of other malignant neoplasm of bronchus and lung; Z85.51 Personal history of malignant neoplasm of bladder; Z86.16 Personal history of COVID-19; F17.210 Nicotine dependence, cigarettes, uncomplicated; Z20.822 Contact with and (suspected) exposure to COVID-19; D72.829 Elevated white blood cell count, unspecified; T40.2X5A Adverse effect of other opioids, initial encounter; R45.1 Restlessness and agitation
CPT/HCPCS: 0240U; 36415; 36600; 70450; 71045; 80048; 80053; 80305-QW; 80307; 81001; 82140; 82803; 82947; 83605; 83690; 83735; 83880; 84100; 84145; 84443; 85025; 85027; 85610; 86140; 87040; 93005; 93010; 94640; 96374; 96375; 99285; 99285-25; A9270-GY; J0696; J1630; J1815-GY; J1885; J1940; J2060; J3480; J3490; J7512; J7620-GY; U0002